=== PATIENT | female | born 2000 | race Caucasian/White ===

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

== ENCOUNTER → 2021-01-01 | Outpatient (REF) | payer MEDICAID ==
[2021-01-01 12:37] LABS: HEMATOCRIT 38.1 % (36.0-47.0); HEMOGLOBIN 12.8 g/dl (12.0-15.5); MEAN CORPUSCULAR HEMOGLOBIN 28.4 pg (27.0-33.0); MEAN CORPUSCULAR HGB CONC 33.6 g/dl (32.0-36.5); MEAN CORPUSCULAR VOLUME 84.7 fl (80.0-96.0); PLATELET COUNT, AUTOMATED 279 10^3/uL (150-450); WHITE BLOOD COUNT 11.5 10^3/uL (4.0-10.0)
[2021-01-01 13:00] LABS: HCG, SERUM QUANTITATIVE 130 MIU/ML
[2021-01-01 13:46] LABS: HEPATITIS C VIRUS ABY INDEX 0.1 INDEX (<0.8); HIV 1&2 SCREEN CENTAUR NEGATIVE (NEGATIVE)
== END ==
LOC: M LAB REF 12:02
PROVIDERS: ATTEND Advanced Practice Midwife
DX: Z32.01 Encounter for pregnancy test, result positive (principal)

== ENCOUNTER → 2021-01-05 | Outpatient (REF) | payer MEDICAID | LOC: M LAB REF 16:07 | PROVIDERS: ATTEND Obstetrics & Gynecology | DX: O36.80X0 Pregnancy with inconclusive fetal viability, not applicable or unspecified (principal) ==

== ENCOUNTER → 2021-01-13 | Outpatient (REF) | payer MEDICAID | LOC: M LAB REF 11:16 | PROVIDERS: ATTEND Advanced Practice Midwife | DX: O36.80X0 Pregnancy with inconclusive fetal viability, not applicable or unspecified (principal); Z3A.00 Weeks of gestation of pregnancy not specified ==

== ENCOUNTER → 2021-01-15 | Outpatient (CLI) | payer MEDICAID ==
--- NOTE | 2021-01-15 13:32 | REP ---
INDICATION: DATING/VIABILTY. COMPARISON: None. TECHNIQUE: Transabdominal scanning is performed. FINDINGS: There is an intrauterine gestational sac containing a yolk sac and embryonic pole. The crown-rump length of the embryonic pole is 3 mm. This corresponds with a 6 week 0 day gestational age estimate. By mean sac size diameter of 9 mm, gestational age estimate would be 4 weeks 6 days. heart rate is recorded at 105 beats per minute. There is no evidence of subchorionic hemorrhage. No significant extra uterine abnormality is observed. IMPRESSION: Single living intrauterine gestation at 6 weeks 0 days by crown-rump length. [place] by sonography September 10, 2021. <Electronically signed by Chester Gonzalez > 01/15/21 2089
== END ==
LOC: M WHC 09:39
PROVIDERS: ATTEND Advanced Practice Midwife
DX: Z32.01 Encounter for pregnancy test, result positive (principal); Z3A.01 Less than 8 weeks gestation of pregnancy

== ENCOUNTER → 2021-06-17 | Outpatient (CLI) | payer MEDICAID ==
[2021-06-17 12:52] LABS: HEMATOCRIT 38.3 % (36.0-47.0); HEMOGLOBIN 12.8 g/dl (12.0-15.5); MEAN CORPUSCULAR HEMOGLOBIN 29.9 pg (27.0-33.0); MEAN CORPUSCULAR HGB CONC 33.4 g/dl (32.0-36.5); MEAN CORPUSCULAR VOLUME 89.5 fl (80.0-96.0); PLATELET COUNT, AUTOMATED 258 10^3/uL (150-450); RED BLOOD COUNT 4.28 10^6/uL (4.00-5.40); WHITE BLOOD COUNT 13.5 10^3/uL (4.0-10.0)
== END ==
LOC: M LAB 11:03
PROVIDERS: ATTEND Advanced Practice Midwife
DX: Z34.02 Encounter for supervision of normal first pregnancy, second trimester (principal)

== ENCOUNTER → 2021-08-18 | Outpatient (REF) | payer MEDICAID | LOC: M LAB REF 11:35 | PROVIDERS: ATTEND Obstetrics & Gynecology | DX: Z34.03 Encounter for supervision of normal first pregnancy, third trimester (principal) ==

== ENCOUNTER 2021-08-21 13:26 | Outpatient (CLI) | payer MEDICAID ==
[~2021-08-21] VITALS: Ht 167.6 cm; Wt 75.5 kg
[2021-08-21 13:49] VITALS: BP 130/85
[2021-08-21] MEDS ORDERED: PRENTAB9 PO (14:06)
[2021-08-21] MEDS ORDERED: HOME MED LIST COMPLETE! XX SCH (14:10)
== END 2021-08-21 15:20 | disposition home or self-care (01) ==
LOC: M LDO 13:26
PROVIDERS: ATTEND Obstetrics & Gynecology
DX: O26.893 Other specified pregnancy related conditions, third trimester (principal); Z3A.37 37 weeks gestation of pregnancy; R51.9 Headache, unspecified; N89.8 Other specified noninflammatory disorders of vagina

== ENCOUNTER → 2022-04-01 | Outpatient (REF) ==
[~2022-04-01] MED LIST: ACET-683 PO; IBUP80TA PO; PRENTAB9 PO
== END ==
LOC: M LABSMTC 10:23
PROVIDERS: ATTEND Family Medicine
DX: Z20.822 Contact with and (suspected) exposure to COVID-19 (principal)

== ENCOUNTER → 2022-07-22 | Outpatient (REF) | LOC: M EMP 10:47 | PROVIDERS: ATTEND Family Medicine | DX: Z20.822 Contact with and (suspected) exposure to COVID-19 (principal) ==

== ENCOUNTER → 2022-07-27 | Outpatient (REF) | LOC: M LABSMTC 10:50 | PROVIDERS: ATTEND Family Medicine | DX: Z20.822 Contact with and (suspected) exposure to COVID-19 (principal) ==

== ENCOUNTER 2022-09-25 19:45 | Inpatient (IN) | payer MEDICAID ==
[~2022-09-25] VITALS: Ht 170.2 cm; Wt 63.5 kg
[2022-09-25 20:52] LABS: HEMATOCRIT 38.4 % (36.0-47.0); HEMOGLOBIN 12.8 g/dl (12.0-15.5); MEAN CORPUSCULAR HEMOGLOBIN 29.3 pg (27.0-33.0); MEAN CORPUSCULAR HGB CONC 33.3 g/dl (32.0-36.5); MEAN CORPUSCULAR VOLUME 87.9 fl (80.0-96.0); PLATELET COUNT, AUTOMATED 285 10^3/uL (150-450); RED BLOOD COUNT 4.37 10^6/uL (4.00-5.40); WHITE BLOOD COUNT 10.7 10^3/uL (4.0-10.0)
[2022-09-25 21:14] LABS: RSV AMPLIFICATION NEGATIVE (NEGATIVE)
[2022-09-25 21:29] LABS: HCG, SERUM QUALITATIVE POSITIVE (NEGATIVE)
[2022-09-25 21:43] LABS: ACETAMINOPHEN LEVEL < 2.0 UG/ML (10.0-30.0); ALT/SGPT 26 U/L (12-78); BILIRUBIN,DIRECT 0.2 MG/DL (0.0-0.2); BILIRUBIN,TOTAL 0.5 MG/DL (0.2-1.0); BLOOD UREA NITROGEN 12 MG/DL (7-18); CALCIUM LEVEL 8.9 MG/DL (8.5-10.1); CARBON DIOXIDE LEVEL 23 MEQ/L (21-32); CHLORIDE LEVEL 109 MEQ/L (98-107); CREATININE FOR GFR 0.71 MG/DL (0.55-1.30); ETHYL ALCOHOL (ETHANOL) < 0.003 % (0.000-0.010); GLOMERULAR FILTRATION RATE > 60.0 (>60); GLUCOSE, FASTING 95 MG/DL (70-100); HCG, SERUM QUANTITATIVE 574 MIU/ML; POTASSIUM SERUM 4.1 MEQ/L (3.5-5.1); SALICYLATE LEVEL < 1.7 MG/DL (5.0-30.0); SODIUM LEVEL 139 MEQ/L (136-145); THYROID STIMULATING HORMONE 0.485 uIU/ML (0.358-3.740); TOTAL PROTEIN 6.9 GM/DL (6.4-8.2)
[2022-09-25 22:48] LABS: AMPHETAMINES LEVEL URINE NEGATIVE (NEGATIVE); BARBITURATES URINE NEGATIVE (NEGATIVE); BENZODIAZEPINES URINE NEGATIVE (NEGATIVE); CANNABINOIDS URINE POSITIVE (NEGATIVE); COCAINE METABOLITE URINE NEGATIVE (NEGATIVE); METHADONE URINE NEGATIVE (NEGATIVE); OPIATES URINE NEGATIVE (NEGATIVE); PHENCYCLIDINE URINE NEGATIVE (NEGATIVE)
[2022-09-25] MEDS ORDERED: HOME MED LIST COMPLETE! XX SCH (23:00)
[2022-09-26] MEDS ORDERED: MOM 30ML SUSPENSION UDC PO PRN (12:00)
[2022-09-26] MEDS ORDERED: IBUPROFEN 400MG TAB PO PRN (12:00)
[2022-09-26] MEDS ORDERED: MAALOX 30 ML SUSP *UDC PO PRN (12:00)
[2022-09-26] MEDS: NICOTINE 21MG/24HR 1 EA TRANSDERMAL TD SCH ×2 (14:55→14:59)
[2022-09-26 15:17] VITALS: BP 137/88
[2022-09-27 06:17] VITALS: BP 133/66
[2022-09-27] MEDS ORDERED: INFLUENZA QUADRIVALENT PF VACCINE 0.5ML SYRINGE IM.IMMUN ONE (09:00)
[2022-09-27 16:08] VITALS: BP 128/72
[2022-09-28 06:16] VITALS: BP 130/65
[2022-09-28] MEDS: PRENATAL VITAMINS CHEWABLE TABLET PO SCH (08:14)
[2022-09-28 16:15] VITALS: BP 128/76
[2022-09-29 06:12] VITALS: BP 127/66
[2022-09-29] MEDS: PRENATAL VITAMINS CHEWABLE TABLET PO SCH (08:26)
[2022-09-29] MEDS ORDERED: PRENCHW PO (08:35)
== END 2022-09-29 12:45 | disposition home or self-care (01) | DRG 753 ==
LOC: M ED 19:45 → M ED INP 09-26 11:57 → M PSY 09-26 15:12
PROVIDERS: ADMIT Student in an Organized Health Care Education/Training Program; ATTEND Psychiatry & Neurology Psychiatry
DX: F31.81 Bipolar II disorder (principal); F17.200 Nicotine dependence, unspecified, uncomplicated; F43.23 Adjustment disorder with mixed anxiety and depressed mood; Z56.6 Other physical and mental strain related to work; Z81.8 Family history of other mental and behavioral disorders; Z83.3 Family history of diabetes mellitus; Z33.1 Pregnant state, incidental; F41.9 Anxiety disorder, unspecified; Z63.5 Disruption of family by separation and divorce; Z81.3 Family history of other psychoactive substance abuse and dependence

== ENCOUNTER → 2022-10-18 | Outpatient (REF) | payer MEDICAID ==
[~2022-10-18] MED LIST changes: +PRENCHW PO
[2022-10-18 15:03] LABS: HEMATOCRIT 40.3 % (36.0-47.0); HEMOGLOBIN 13.4 g/dl (12.0-15.5); MEAN CORPUSCULAR HEMOGLOBIN 29.1 pg (27.0-33.0); MEAN CORPUSCULAR HGB CONC 33.3 g/dl (32.0-36.5); MEAN CORPUSCULAR VOLUME 87.6 fl (80.0-96.0); PLATELET COUNT, AUTOMATED 296 10^3/uL (150-450)
[2022-10-18 17:46] LABS: HEPATITIS B SURFACE ANTIGEN NEGATIVE (NEGATIVE)
[2022-10-18 17:59] LABS: HIV 1&2 SCREEN CENTAUR NEGATIVE (NEGATIVE)
[2022-10-18 18:08] LABS: HCG, SERUM QUANTITATIVE 79575.2 MIU/ML (<4.2)
== END ==
LOC: M LAB REF 12:20
PROVIDERS: ATTEND Obstetrics & Gynecology
DX: O36.80X0 Pregnancy with inconclusive fetal viability, not applicable or unspecified (principal); Z32.01 Encounter for pregnancy test, result positive; Z3A.00 Weeks of gestation of pregnancy not specified

== ENCOUNTER → 2023-01-19 | Outpatient (REF) | LOC: M LABSMTC 09:46 | PROVIDERS: ATTEND Family Medicine | DX: Z11.52 Encounter for screening for COVID-19 (principal) ==

== ENCOUNTER → 2023-01-24 | Outpatient (REF) | LOC: M LABSMTC 10:10 | PROVIDERS: ATTEND Family Medicine | DX: Z11.52 Encounter for screening for COVID-19 (principal) ==

== ENCOUNTER → 2024-12-11 | Outpatient (REF) | LOC: M EMP 12:23 | PROVIDERS: ATTEND Family Medicine | DX: Z01.89 Encounter for other specified special examinations (principal) ==

== ENCOUNTER → 2025-09-19 | Outpatient (REF) | LOC: M EMP 12:45 | PROVIDERS: ATTEND Family Medicine | DX: Z01.89 Encounter for other specified special examinations (principal) ==

== ENCOUNTER → 2025-11-07 | Outpatient (REF) | LOC: M EMP 15:55 | PROVIDERS: ATTEND Family Medicine | DX: Z11.59 Encounter for screening for other viral diseases (principal) ==